=== PATIENT | female | born 1985 | race Caucasian/White ===

== ENCOUNTER 2022-07-19 16:47 | Emergency (ER) | payer MEDICAID ==
[~2022-07-19] VITALS: Ht 157.5 cm; Wt 47.6 kg
--- NOTE | 2022-07-19 17:55 | NUR ---
[email or web address], medical screening exam in progress
[2022-07-19] MEDS ORDERED: CIPR7.5D LEFT EAR (17:59)
[2022-07-19] MEDS ORDERED: IBUP-1955 PO (17:59)
[2022-07-19] MEDS ORDERED: MECL-159 PO (18:01)
--- NOTE | 2022-07-19 18:34 | NUR ---
Patient discharged to home in stable condition with brisk steady gait. Written and verbal after care instructions given to patient and spouse. Patient and family verbalized understanding and compliance of instructions. Stressed follow up with primary doctor and ENT doctor or return to ER for worsening s/s.
== END 2022-07-19 18:34 | disposition home or self-care (01) ==
LOC: ER 16:55
DX: H60.92 Unspecified otitis externa, left ear (principal); R42 Dizziness and giddiness; H91.90 Unspecified hearing loss, unspecified ear
CPT/HCPCS: A4663